=== PATIENT | female | born 1980 | race Caucasian/White ===

== ENCOUNTER 2017-06-11 08:22 | Inpatient (IN) | payer OTHER ==
[~2017-06-11] VITALS: Ht 167.6 cm; Wt 109.0 kg
[~2017-06-11 08:22] MED LIST: ADVAIR 250/501 DISK IH; AMOX TR-K CLV1 EAC4 PO; BACTRIM,SEPT1 TABLET PO; BENADRYL25 MG PO; BENADRYL50 MG PO; CAMILA0.35 MG PO; CHERATUSSIN AC473 ML PO; CHROMAGEN,1 CAPSULE PO; CLINDAMYCIN HC150 MG PO; ELIMITE 5% CREA60 GM TP; IBUPROFEN800 MG PO; KEFLEX500 MG PO; LOVENOX40 MG/0.4 SC; METHADONE 22 MG/1 ML PO; NOHOMEMEDS; PHENERGAN-CODE120 ML PO; PREDNISONE50 MG PO; PRENATAL COMPL1 EACH PO; PROAIR HFA8.5 GM IH; PROVENTIL,2.5 MG/3 M IH; TRIAMCINOLONE A80 GM TP; TYLENOL WITH C1 EACH PO; VENTOLIN HFA18 GM IH; WELLBUTRIN XL300 MG; WELLBUTRIN XL300 MG PO; ZITHROMAX Z-PA250 MG PO; ZYRTEC10 MG
[2017-06-11 09:48] LABS: CHLORIDE 92 mEq/L (99-109)
[2017-06-11 09:49] LABS: POTASSIUM 3.9 mEq/L (3.7-5.4); SODIUM 131 mEq/L (136-147)
[2017-06-11 09:51] LABS: GLUCOSE 128 mg/dL (70-99)
[2017-06-11 09:52] LABS: ANION GAP 13 MEQ/L (2-14)
[2017-06-11 09:53] LABS: TOTAL BILIRUBIN 0.9 mg/dL (0.0-1.0)
[2017-06-11 09:54] LABS: ALKALINE PHOSPHATASE 75 IU/L (3-129); GFR ESTIMATE (CALCULATED) > 59 mL/min/
[2017-06-11 09:56] LABS: UREA NITROGEN (BUN) 14 mg/dL (9-23)
[2017-06-11 09:58] LABS: LIPASE 14 U/L (1.0-51.0)
[2017-06-11 10:09] LABS: EOSINOPHIL (%) 0 % (0-5); HEMATOCRIT 37.4 % (36.0-46.0); IMMATURE GRANULOCYTE (%) 1.1 % (0.0-0.7); IMMATURE GRANULOCYTE COUNT 0.1 K/uL; INSTRUMENT ABS NEUTROPHIL CT 8.9 K/uL; LYMPHOCYTE COUNT 0.6 K/uL (1.0-2.8); MCH 23.3 PG (29.0-34.0); MCHC 31.8 G/DL (30.0-36.0); MCV 73.3 FL (83-99); MEAN PLAT.VOLUME 10.3 uM^3 (9.5-12.4); MONOCYTE (%) 3.5 % (3-12); MONOCYTE COUNT 0.4 K/uL (0-0.8); NEUTROPHIL COUNT 8.9 K/uL (1.8-6.4); PLATELET COUNT 155 K/uL (156-360); RBC DIS.WIDTH-CV 15.1 % (11.8-14.6); RBC DIS.WIDTH-SD 39.8 % (39-53)
[2017-06-11 13:49] LABS: ADD MIUA? YES; BILIRUBIN NEGATIVE; BLOOD MODERATE; GLUCOSE (STRIP) NEGATIVE; KETONES NEGATIVE; LEUKOCYTES NEGATIVE; NITRITE NEGATIVE; PROTEIN (STRIP) 30; SPECIFIC GRAVITY 1.005 (1.000-1.030); UROBILINOGEN 0.2 MG/DL (0.2-1.0)
[2017-06-11 13:53] LABS: COLOR LT YELLOW ((YELLOW))
[2017-06-11 14:01] LABS: BACTERIA NONE SEEN /HPF; EPITHELIAL CELLS 1+ /HPF; MUCUS TRACE /LPF; UCUL ADDED? NO; WHITE BLOOD CELLS 0-5 /HPF (0-5)
[2017-06-11 23:58] VITALS: BP 102/56
[2017-06-12 07:14] LABS: ANION GAP 7 MEQ/L (2-14); CHLORIDE 103 MEQ/L (99-109); GFR ESTIMATE (CALCULATED) > 59 mL/min/; POTASSIUM 3.5 MEQ/L (3.7-5.4); SAMPLE HEMOLYSIS CHECK 0; SAMPLE ICTERIC CHECK 0; SAMPLE LIPEMIA CHECK 0; UREA NITROGEN (BUN) 13 mg/dL (9-23)
[2017-06-12 07:19] LABS: GLUCOSE 87 mg/dL (70-99); SODIUM 138 MEQ/L (136-147)
[2017-06-12 07:30] LABS: HEMATOCRIT 33.7 % (36.0-46.0); MCH 23.4 PG (29.0-34.0); MCHC 31.5 G/DL (30.0-36.0); MCV 74.4 FL (83-99); RBC DIS.WIDTH-CV 15.4 % (11.8-14.6); RBC DIS.WIDTH-SD 41.3 % (39-53); RED BLOOD COUNT 4.53 M/uL (3.80-5.20); WHITE BLOOD COUNT 6.2 K/uL (4.1-10.2)
[2017-06-12 07:54] LABS: EOSINOPHIL (%) 0.2 % (0-5); IMMATURE GRANULOCYTE (%) 0.5 % (0.0-0.7); LYMPHOCYTE COUNT 0.8 K/uL (1.0-2.8); MEAN PLAT.VOLUME 10.6 uM^3 (9.5-12.4); MONOCYTE (%) 5.4 % (3-12); MONOCYTE COUNT 0.3 K/uL (0-0.8); NEUTROPHIL (%) 81.3 % (45-76)
[2017-06-12 07:57] LABS: PLATELET COUNT 105 K/uL (156-360)
[2017-06-12 08:29] VITALS: BP 112/60
[2017-06-12 10:42] LABS: POINT-OF-CARE METER ID UU13113725
[2017-06-12 13:46] LABS: IRON < 10.0 MCG/DL (35-150)
[2017-06-12 14:19] LABS: FERRITIN 246 NG/ML (10-291)
[2017-06-12 15:25] VITALS: BP 118/68
[2017-06-12 23:05] VITALS: BP 118/64
[2017-06-13 06:15] LABS: HEMATOCRIT 31.6 % (36.0-46.0); MCH 23.4 PG (29.0-34.0); MCV 75.6 FL (83-99); MEAN PLAT.VOLUME 11.2 uM^3 (9.5-12.4); PLATELET COUNT 126 K/uL (156-360); RBC DIS.WIDTH-CV 15.4 % (11.8-14.6); RBC DIS.WIDTH-SD 42.6 % (39-53); RED BLOOD COUNT 4.18 M/uL (3.80-5.20); WHITE BLOOD COUNT 6.5 K/uL (4.1-10.2)
[2017-06-13 06:36] LABS: ANION GAP 11 MEQ/L (2-14); CHLORIDE 103 MEQ/L (99-109); GFR ESTIMATE (CALCULATED) > 59 mL/min/; GLUCOSE 73 mg/dL (70-99); POTASSIUM 3.4 MEQ/L (3.7-5.4); SAMPLE HEMOLYSIS CHECK 0; SAMPLE ICTERIC CHECK 0; SAMPLE LIPEMIA CHECK 0; SODIUM 139 MEQ/L (136-147); UREA NITROGEN (BUN) 11 mg/dL (9-23)
[2017-06-13 08:00] VITALS: BP 113/57
[2017-06-13 09:10] LABS: Estimated Average Glucose 117 mg/dL (70-123); HEMOGLOBIN A1c (GLYCOHEMOGLOB) 5.7 % HGB (Below 5.7)
[2017-06-13] MEDS ORDERED: MOTRIN600 MG PO (10:27)
[2017-06-13] MEDS ORDERED: POLYETHYLENE GL17 GM PO (10:29)
[2017-06-13] MEDS ORDERED: DOCUSATE SODIU100 MG PO (10:29)
[2017-06-13] MEDS ORDERED: FERROUS SULFAT325 MG PO (10:29)
[2017-06-13] MEDS ORDERED: AUGMENTIN875 MG PO (10:29)
== END 2017-06-13 15:53 | disposition home health service (06) | DRG 603 ==
LOC: EME 08:22 → EDOF 11:56 → 5EAST 11:56 → ENRESERV 12:03 → 5EAST 14:28
PROVIDERS: Emergency Medicine; Internal Medicine
DX: L03.115 Cellulitis of right lower limb (principal); I87.2 Venous insufficiency (chronic) (peripheral); L97.219 Non-pressure chronic ulcer of right calf with unspecified severity; B18.2 Chronic viral hepatitis C; D50.9 Iron deficiency anemia, unspecified; D69.6 Thrombocytopenia, unspecified; E87.6 Hypokalemia; K80.20 Calculus of gallbladder without cholecystitis without obstruction; L30.8 Other specified dermatitis; F32.9 Major depressive disorder, single episode, unspecified; F41.9 Anxiety disorder, unspecified; F11.20 Opioid dependence, uncomplicated; E66.9 Obesity, unspecified; F17.200 Nicotine dependence, unspecified, uncomplicated; Z91.19 Patient's noncompliance with other medical treatment and regimen; Z23 Encounter for immunization; Z88.1 Allergy status to other antibiotic agents; Z91.040 Latex allergy status; Z68.38 Body mass index [BMI] 38.0-38.9, adult
CPT/HCPCS: 71010; 76705; 80048; 80053; 81003; 82103 90; 82728; 82948; 83036; 83540; 83605; 83690; 84443; 84466; 85025; 85027; 87040; 87070; 87075; 87076; 87077; 87147; 87186; 87205; 90686; 93971; 99281; 99285; A6260; J0295; J0696; J1644; J1756; J3370; J7030; J7040; J7050